=== PATIENT | female | born 1990 | race Caucasian/White ===

== ENCOUNTER 2016-12-28 01:16 | Emergency (ER) | payer MEDICAID, OTHER ==
[2016-12-28 01:24] VITALS: BP 137/98; PULSE 96; RESP 18; TEMP 98; O2SAT 100
[2016-12-28] MEDS ORDERED: Oxycodone/Acetaminophen 5/325 mg Tab PO STA (01:50)
--- NOTE | 2016-12-28 01:55 | ED PDOC ---
Lower Extremity Pain/Injury Time Seen by Provider: 12/28/16 01:21 Chief Complaint (Nursing): Lower Extremity Problem/Injury Chief Complaint (Provider): Knee pain on/off for 3 years History Per: Patient History/Exam Limitations: no limitations Onset/Duration Of Symptoms: Days (2) Current Symptoms Are (Timing): Still Present Additional Complaint(s): Pt states she gets the pain on/off for years but states that she began having this episode yesterday. Pt states she is having worse pain tonight after working. No new trauma. Past Medical History Reviewed: Historical Data, Nursing Documentation, Vital Signs Vital Signs: Last Vital Signs Temp 98 F 12/28/16 01:18 Pulse 96 H 12/28/16 01:18 Resp 18 12/28/16 01:18 BP 137/98 H 12/28/16 01:18 Pulse Ox 100 12/28/16 01:18 - Medical History PMH: No Chronic Diseases - Surgical History Surgical History: No Surg Hx - Family History Family History: States: Unknown Family Hx - Living Arrangements Living Arrangements: With Family - Social History Current smoker - smoking cessation education provided: No Alcohol: None Drugs: Denies - Immunization History Hx Tetanus Toxoid Vaccination: No Hx Influenza Vaccination: No Hx Pneumococcal Vaccination: No - Home Medications Home Medications: Ambulatory Orders Medication Instructions Recorded Naproxen 375 mg PO Q8 PRN #21 tab 01/05/16 diaZEpam [Valium] 5 mg PO Q6 PRN #8 tab 01/05/16 oxyCODONE/Acetaminophen [Percocet 1 ea PO Q6 PRN #8 tab 01/05/16 5/325 mg Tab] oxyCODONE/Acetaminophen [Percocet 1 ea PO Q6H PRN #5 tab 12/28/16 5/325 mg Tab] - Allergies Allergies/Adverse Reactions: Allergies Allergy/AdvReac Type Severity Reaction Status Date / Time No Known Allergies Allergy Verified 01/05/16 19:48 Review of Systems ROS Statement: Except As Marked, All Systems Reviewed And Found Negative Musculoskeletal: Positive for: Other Physical Exam - Reviewed Nursing Documentation Reviewed: Yes Vital Signs Reviewed: Yes - Physical Exam Appears: Positive for: Well, Non-toxic, No Acute Distress Head Exam: Positive for: ATRAUMATIC, NORMAL INSPECTION, NORMOCEPHALIC Skin: Positive for: Normal Color, Warm, DRY Eye Exam: Positive for: Normal appearance ENT: Positive for: Normal ENT Inspection Neck: Positive for: Normal, Painless ROM Respiratory: Negative for: Accessory Muscle Use, Respiratory Distress Back: Positive for: Normal Inspection Extremity: Positive for: Normal ROM. Negative for: Tenderness, Deformity, Swelling Neurologic/Psych: Positive for: Alert, Oriented - ECG O2 Sat by Pulse Oximetry: 100 Medical Decision Making Medical Decision Making: Pt states that she had normal x-ray but has never had MRI. Disposition - Clinical Impression Clinical Impression: Knee pain - Patient ED Disposition Is Patient to be Admitted: No Counseled Patient/Family Regarding: Diagnosis, Need For Followup, Rx Given - Disposition Referrals: [facility] [Outside] Disposition: Routine/Home Disposition Time: 01:51 Condition: GOOD Prescriptions: oxyCODONE/Acetaminophen [Percocet 5/325 mg Tab] 1 ea PO Q6H PRN #5 tab PRN Reason: Pain, Severe (8-10) Instructions: Meniscus Tear (ED)
[2016-12-28] MEDS ORDERED: Oxycodone/Acetaminophen 5/325 mg Tab ONE (02:00)
== END 2016-12-28 02:10 | disposition home or self-care (01) ==
LOC: H.ER 01:16
DX: M25.562 Pain in left knee (principal)

== ENCOUNTER 2017-04-07 23:58 | Emergency (ER) | payer MEDICAID ==
[2017-04-08 00:27] VITALS: BP 134/69; PULSE 98; RESP 16; TEMP 98; O2SAT 98
--- NOTE | 2017-04-08 00:52 | ED PDOC ---
HPI: Eye Injury/Pain Time Seen by Provider: 04/08/17 00:19 Chief Complaint (Nursing): Eye Problem Chief Complaint (Provider): eye irritation History Per: Patient Additional Complaint(s): 27 year old female with no PMH presents to ED with irritation and redness to both eyes s/p swimming in a chlorinated pool earlier today. Patient denies vision loss or changes, no headache or dizziness, no nausea or vomiting, no discharge from eyes or foreign body sensation. Patient does not wear contact lenses. Past Medical History Reviewed: Historical Data, Nursing Documentation, Vital Signs Vital Signs: Last Vital Signs Temp 98.0 F 04/08/17 00:24 Pulse 98 H 04/08/17 00:24 Resp 16 04/08/17 00:24 BP 134/69 04/08/17 00:24 Pulse Ox 98 04/08/17 00:24 - Medical History PMH: No Chronic Diseases - Surgical History Surgical History: No Surg Hx - Family History Family History: States: No Known Family Hx - Living Arrangements Living Arrangements: With Family - Social History Current smoker - smoking cessation education provided: No Alcohol: None Drugs: Denies - Home Medications Home Medications: Ambulatory Orders Medication Instructions Recorded Naproxen 375 mg PO Q8 PRN #21 tab 01/05/16 diaZEpam [Valium] 5 mg PO Q6 PRN #8 tab 01/05/16 oxyCODONE/Acetaminophen [Percocet 1 ea PO Q6 PRN #8 tab 01/05/16 5/325 mg Tab] oxyCODONE/Acetaminophen [Percocet 1 ea PO Q6H PRN #5 tab 12/28/16 5/325 mg Tab] Peg 400/Hypromellose/Glycerin 15 ml TOP PRN #1 bottle 04/08/17 [Artificial Tears Drops] - Allergies Allergies/Adverse Reactions: Allergies Allergy/AdvReac Type Severity Reaction Status Date / Time No Known Allergies Allergy Verified 01/05/16 19:48 Review of Systems ROS Statement: Except As Marked, All Systems Reviewed And Found Negative Constitutional: Negative for: Fever Eyes: Positive for: Other (redness and irritation to both eyes) Gastrointestinal: Negative for: Vomiting Neurological: Negative for: Headache, Dizziness Physical Exam - Reviewed Nursing Documentation Reviewed: Yes Vital Signs Reviewed: Yes - Physical Exam Appears: Positive for: Well, Non-toxic, No Acute Distress Skin: Positive for: Normal Color Eye Exam: Positive for: Conjunctival injection (to both eyes, no gross FB to both eyes, no active drainage). Negative for: Periorbital swelling, Periorbital tenderness - ECG O2 Sat by Pulse Oximetry: 98 Pulse Ox Interpretation: Normal Medical Decision Making Medical Decision Making: Impression: Bilateral chemical conjunctivitis status post chlorine exposure Eye wash saline applied to eyes in ED. Rx given for artificial tears. Patient was advised to avoid further exposure to chlorine and to take NSAID's for pain as needed. Ophthalmology referral provided. Disposition - Clinical Impression Clinical Impression: Chemical conjunctivitis - Patient ED Disposition Is Patient to be Admitted: No Counseled Patient/Family Regarding: Diagnosis, Need For Followup, Rx Given - Disposition Referrals: Vargas Carroll MD [Staff Provider] - Disposition: Routine/Home Disposition Time: 01:00 Condition: STABLE Additional Instructions: Apply drops as directed. Follow up with network applications specialist Prescriptions: Peg 400/Hypromellose/Glycerin [Artificial Tears Drops] 15 ml TOP PRN #1 bottle Instructions: Chemical Eye Pitt (ED) Print Language: KHMER
[2017-04-08] MEDS ORDERED: Ophthalmic Irrigation, Soln OU ONE (00:56)
[2017-04-08] MEDS ORDERED: Ophthalmic Irrigation, Soln ONE (01:01)
== END 2017-04-08 01:32 | disposition home or self-care (01) ==
LOC: H.ER 23:58
DX: H10.219 Acute toxic conjunctivitis, unspecified eye (principal)